=== PATIENT | male | born 1965 | race Caucasian/White ===

== ENCOUNTER → 2018-01-14 | Outpatient (CLI) | payer OTHER ==
[~2018-01-14] MED LIST: IOHEXOL 180 MG/ML 10 ML VIAL. ONE; LIDOCAINE 2% PF 2ML VIAL. ONE; PANT20TA2 PO; methylPREDNISolone ACETATE 40 MG/ML VIAL. ONE; methylPREDNISolone ACETATE 80 MG/ML VIAL. ONE
--- NOTE | 2018-01-15 05:23 | PAIN ---
DATE OF SERVICE: 01/14/2018 INITIAL CONSULTATION FOR PAIN CLINIC CHIEF COMPLAINT: Low back and right lower extremity pain. HISTORY OF PRESENT ILLNESS: This is a 52-year-old male who presents with a history of pain for about 4-6 months, increasing in the low back and right lower extremity, worse with walking, standing, changing positions from standing to sitting and vice versa. The patient reports it awakens him from sleep once or twice at night, does not affect his bowel or bladder control, but does affect his ability to walk, especially with extended standing. The patient reports it radiating into the anterior thigh, anterior medial thigh, medial knee on the right side and across the low back, but mostly on the right. The patient reports it is constant and sharp. The patient has had physical therapy in the past and also exercise that he is doing for himself. 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 Also walking daily despite the pain and was becoming more difficult to do so. The patient reports he did have an epidural injection in 03/2015 x 1 at an outside facility, which did very well and has relieved his pain essentially until the last few months. The patient was taking ibuprofen, but only rarely. It does help the pain by about 40-50%. The patient had MRI scan of the lumbar spine on 01/12/2018 showing L2-L3 mild degenerative disk disease and mild bilateral facet arthropathy with minimal left neural foraminal stenosis. L3-L4 shows mild degenerative disk disease and mild bilateral facet arthropathy, ligamentum flavum hypertrophy without central or foraminal stenosis at that level. The patient's disability rate from 0-10, 10 being the worst, is a 5 with family and home responsibilities and social activities, 6 with recreation, 4 with occupation, sexual behavior and self care and 3 with life support activities. The patient reports no loss of motor function, but again significant fatigability with the right leg with extended exercise and walking. PAST MEDICAL HISTORY: Significant for gastroesophageal reflux, vertigo and arthritis. PREVIOUS SURGERY: Include appendectomy and vasectomy. CURRENT MEDICATIONS: Include only Protonix 20 mg daily and [id number] ibuprofen. FAMILY HISTORY: Significant for diabetes. SOCIAL HISTORY: The patient drinks about one drink a week on average, does not smoke, is and lives with his spouse, lives locally in [place], [place] and is a group practice pediatrician for medical practices. REVIEW OF SYSTEMS: The patient's review of systems is positive for those items mentioned in the history of present illness. All systems reviewed and otherwise negative. It is complete, full and well documented on the patient's chart. PHYSICAL EXAMINATION: VITAL SIGNS: Today, the patient's blood pressure is 115/73, pulse 80, respirations 16, temperature 98.0 degrees Fahrenheit. Height 5 feet 8 inches and weight is 184 pounds. GENERAL: The patient is awake, alert, oriented, appropriate, very pleasant demeanor. HEENT: Head shows normocephalic and atraumatic. Extraocular movements are intact and symmetrical. Oral cavity: Mucous membranes are moist and pink. Dentition is intact. NECK: Shows anterior throat is supple without palpable lymphadenopathy noted. Swallow reflex is symmetrical. CHEST: Shows normal on inspection. Breath sounds are clear to auscultation bilaterally. HEART: Shows S1 and S2 clear. No murmurs are auscultated. ABDOMEN: Soft, nontender and nondistended. No palpable organomegaly is noted. No rebound or guarding demonstrated. BACK: Shows spine grossly in the midline. Normal appearing thoracic kyphosis and lumbar lordotic curvature. Lumbar paraspinous muscle shows symmetrical on inspection. With palpation shows some moderate tenderness, but only diffusely with palpation bilaterally without radiation. The patient has good rotational motion both laterally greater than 10 degrees right and left as well as extension greater than 10 degrees, forward flexion 45 degrees without significant pain reported. No tenderness over the sacrum or sacroiliac regions. EXTREMITIES: Lowe extremities show deep tendon reflexes 2+ in the patellar and 1+ in tendo calcaneus tendons. Motor exam shows 5/5 dorsiflexion, extension, quadriceps and hamstring flexion and are symmetrical. The patient's peripheral pulses are 1+ posterior tibial. No peripheral edema is noted bilaterally. Gaenslen's and Ramiro's maneuvers are negative bilaterally as is straight leg raise bilaterally. The patient was able to stand, stand on his toes without difficulty or loss of balance, walks with a normal appearing gait. SKIN: Shows normal, warm and dry, good turgor. No edema. No sores, rashes or bruising. IMPRESSION: 1. This is a 52-year-old male with about 4-6 month history of increasing pain in the low back and right lower extremity in a radicular fashion. 2. MRI scan of the lumbar spine as noted. 3. History of arthritis. 4. Gastroesophageal reflux. PLAN: Options were discussed with the patient including conservative medical management, physical therapy, interventional techniques. He would like to pursue interventional techniques. We discussed a lumbar epidural steroid injection using description as well as anatomical models to describe the procedure. Risks were then discussed including, but not limited to bleeding, infection, possibility of epidural hematoma, subsequent neurological compromise, dural puncture, headaches, spinal cord and/or nerve damage, side effects of steroid medication and poor results regarding pain control. The patient understands and wished to proceed. The patient will return to the clinic in approximately 2 weeks for followup or necessary. He would likely call for his next appointment. The patient was given instruction as well as side effects to be aware of and will follow up as scheduled. DIAGNOSIS: Lumbar radiculopathy with lumbar degenerative disk disease. PROCEDURES: Lumbar epidural steroid injection, translaminar approach at L3-L4 level using C-arm fluoroscopic guidance under sterile prep and drape using local anesthetic. MEDICATION INJECTED: A total of 120 mg Depo-Medrol plus 10 mL of preservative-free normal saline and 2 mL of Isovue for contrast. CONDITION AT DISCHARGE: Stable. The patient tolerated the procedure well and had no complications. ALEXEY BETTS MD DR: SILVANO/chata JOB#: [id number] / [id number] PRANEETH Dunn DO
== END | disposition home or self-care (01) ==
LOC: PNCL 12:09
PROVIDERS: ATTEND Anesthesiology
DX: M51.16 Intervertebral disc disorders with radiculopathy, lumbar region (principal); K21.9 Gastro-esophageal reflux disease without esophagitis; M19.90 Unspecified osteoarthritis, unspecified site; Z90.49 Acquired absence of other specified parts of digestive tract; Z98.52 Vasectomy status; Z79.899 Other long term (current) drug therapy; Z83.3 Family history of diabetes mellitus; Z72.89 Other problems related to lifestyle
CPT/HCPCS: 62323; J1030; J1040; J2001; Q9965